=== PATIENT | female | born 1980 | race Caucasian/White ===

== ENCOUNTER 2017-10-07 12:08 | Emergency (ER) | payer OTHER ==
[~2017-10-07] VITALS: Ht 157.5 cm; Wt 55.8 kg
[2017-10-07 12:15] VITALS: BP 141/89; Ht 157.5 cm; Wt 55.8 kg
== END 2017-10-07 16:18 | disposition home or self-care (01) ==
LOC: ED 12:08
DX: S91.331A Puncture wound without foreign body, right foot, initial encounter (principal); X58.XXXA Exposure to other specified factors, initial encounter; Y93.89 Activity, other specified; Y92.89 Other specified places as the place of occurrence of the external cause; Y99.8 Other external cause status
CPT/HCPCS: 90715; Q0092

== ENCOUNTER 2018-08-12 08:51 | Emergency (ER) | payer OTHER ==
[~2018-08-12] VITALS: Ht 154.9 cm; Wt 56.2 kg
[2018-08-12 08:59] VITALS: Ht 154.9 cm; Wt 56.2 kg
[2018-08-12 10:39] VITALS: BP 94/54
[2018-08-12 11:10] LABS: microscopic required? YES; urine erythrocyte 3+ (NEGATIVE)
== END 2018-08-12 11:09 | disposition home or self-care (01) ==
LOC: ED 08:51
PROVIDERS: Specialist
DX: N39.0 Urinary tract infection, site not specified (principal)
CPT/HCPCS: 87804; J0696; J1885

== ENCOUNTER 2020-05-23 02:10 | Emergency (ER) | payer OTHER ==
[~2020-05-23] VITALS: Ht 154.9 cm; Wt 59.4 kg
[2020-05-23 02:29] VITALS: Ht 154.9 cm; Wt 59.4 kg
[2020-05-23 05:32] VITALS: BP 119/76
== END 2020-05-23 05:32 | disposition home or self-care (01) ==
LOC: ED 02:10
DX: S02.5XXA Fracture of tooth (traumatic), initial encounter for closed fracture (principal); X58.XXXA Exposure to other specified factors, initial encounter; Y93.89 Activity, other specified; Y92.89 Other specified places as the place of occurrence of the external cause; Y99.8 Other external cause status
CPT/HCPCS: J1885